=== PATIENT | female | born 1990 | race American Indian/Alaskan Native ===

== ENCOUNTER 2021-10-11 12:48 | Emergency (ER) | payer OTHER ==
--- NOTE | 2021-10-11 13:21 | Emergency Department Report ---
ED General Adult HPI - General Stated complaint: ABD PAIN Time Seen by Provider: 10/11/21 13:16 - History of Present Illness Initial comments: Patient presents with multiple problems and complaints. For 5 years she has been having intermittent problems with abdominal pain and a mass in her abdomen. She has been seen by numerous physicians and in numerous hospitals. She states that nobody is told her anything. She came here for a second or third or fifth opinion. Patient states that she has swelling in this area that is worse when she stands up. There is no trauma. She believes that she has a hernia. She also reports having chronic ankle pain for 5 years. She had an injury and has had ongoing pain and swelling in the ankle even after surgery. She has had x-rays obtained. She states that she was never told anything. She decided to get this checked out as well. She cannot tell me what is different today when the symptoms have been going on for 5 years. She does not have a family doctor that she sees. ED Review of Systems ROS: Stated complaint: ABD PAIN Other details as noted in HPI Comment: All other systems reviewed and negative Constitutional: denies: fever Eyes: denies: vision change ENT: denies: throat pain Respiratory: denies: cough Cardiovascular: denies: chest pain Gastrointestinal: as per HPI Genitourinary: denies: dysuria Musculoskeletal: denies: back pain Skin: denies: rash Hematological/Lymphatic: denies: easy bruising ED Past Medical Hx - Past Medical History Additional medical history: Chronic abdominal pain chronic ankle pain - Surgical History Additional Surgical History: Ankle - Family History Family history: other (Fluid in the abdomen) ED Physical Exam - General Limitations: No Limitations, Other (Pulse ox noted) General appearance: alert, in no apparent distress, obese - Head Head exam: Present: atraumatic, normocephalic, normal inspection - Eye Eye exam: Present: normal appearance, EOMI. Absent: scleral icterus - ENT ENT exam: Present: normal exam, normal orophraynx - Neck Neck exam: Present: normal inspection. Absent: meningismus - Respiratory Respiratory exam: Present: normal lung sounds bilaterally. Absent: respiratory distress - Cardiovascular Cardiovascular Exam: Present: regular rate, normal rhythm - GI/Abdominal GI/Abdominal exam: Present: soft, mass (Ventral hernia noted that is easily reducible). Absent: distended - Extremities Exam Extremities exam: Present: normal capillary refill, other (Well-healed scar in the medial aspect of the ankle on the right. There is no edema or warmth or erythema.) - Back Exam Back exam: Absent: CVA tenderness (R), CVA tenderness (L) - Neurological Exam Neurological exam: Present: alert, oriented X3, CN II-XII intact, normal gait - Psychiatric Psychiatric exam: Present: normal affect, normal mood - Skin Skin exam: Present: warm, dry ED Course - Reevaluation(s) Reevaluation #1: 10/11/21 13:19 Patient was discharged. Old records reviewed. ED Medical Decision Making - Medical Decision Making Patient presents with multiple issues that been going on for a chronic period of time. She was hoping to get x-rays and ultrasound. At this time, there is no indication for imaging. She has a ventral hernia without evidence of obstruction. She can be referred to surgery. She has chronic ankle issues without any injury. I am not concerned for fracture. Again, there is no indication for x-ray. She was referred for outpatient follow-up. Critical care attestation.: If time is entered above; I have spent that time in minutes in the direct care of this critically ill patient, excluding procedure time. ED Disposition Clinical Impression: Chronic pain of right ankle Ventral hernia Qualifiers: Obstruction and gangrene presence: without obstruction or gangrene Qualified Code(s): K43.9 - Ventral hernia without obstruction or gangrene Disposition: 01 HOME / SELF CARE / HOMELESS Is pt being admited?: No Condition: Stable Instructions: Hernia, Adult, How to Use Cold Therapy, [id number], Ventral Hernia Additional Instructions: Drink plenty water. Continue to exercise. Return for problems. Ice and elevate the ankle. Follow-up with orthopedics and with surgery as discussed. Return for problems. Referrals: PRIMARY CARE, [Referring] - 3-5 Days KRISTIN JAFFE MD [Staff Physician] - 3-5 Days CHAS GRAVES MD [Staff Physician] - 3-5 Days TAMARA BRAMBILA MD [Staff Physician] - 3-5 Days
== END 2021-10-11 14:15 | disposition home or self-care (01) ==
LOC: ED 12:48
DX: M25.571 Pain in right ankle and joints of right foot (principal)
CPT/HCPCS: 99281